=== PATIENT | female | born 1960 | race Hispanic/Latino ===

== ENCOUNTER 2016-07-02 09:10 | Observation (INO) | payer BC, OTHER ==
[2016-07-02 09:10] VITALS: BMI 23.9
[2016-07-02 09:18] VITALS: TEMP 98.5
[2016-07-02 09:21] VITALS: RESP 16
[2016-07-02] MEDS ORDERED: Sodium Chloride 0.9% 1,000 ML IV STA ×2 (09:36→10:29)
--- NOTE | 2016-07-02 09:39 | ED PDOC ---
Arrival/HPI - General Chief Complaint: Dizziness/Lightheaded Time Seen by Provider: 07/02/16 09:23 Historian: Patient - History of Present Illness Narrative History of Present Illness (Text): 07/02/16 09:33 55 year old female who denies significant past medical history presents to the emergency department with reports of "i feel like i have the flu. She reports generalized fatigue, decreased appetite, and body aches for the past five days. She also reports subjective fever. Patient reports she has not been eating due to loss of appetite and has only been drinking water and juice. Patient states she feels a tired when she walks. Denies chest pain, shortness of breath, throat pain, ear pain, cough, congestion, abdominal pain, vomiting, diarrhea, vaginal bleeding, or vaginal discharge. Time/Duration: < week Symptom Onset: Gradual Symptom Course: Unchanged Modifying Factors (Text): None Associated Symptoms (Text): None Past Medical History - Provider Review Nursing Documentation Reviewed: Yes - Infectious Disease Hx of Infectious Diseases: None - Reproductive Menopause: Yes - Psychiatric Hx Substance Use: No - Surgical History Other/Comment: breast implant - Anesthesia Hx Anesthesia: Yes Hx Anesthesia Reactions: No Hx Malignant Hyperthermia: No Family/Social History - Physician Review Nursing Documentation Reviewed: Yes Family/Social History: Unknown Family HX Smoking Status: Former Smoker Hx Alcohol Use: Yes Hx Substance Use: No Allergies/Home Meds Allergies/Adverse Reactions: Allergies No Known Allergies Allergy (Verified 07/02/16 09:19) Review of Systems - Review of Systems Constitutional: Fatigue, Fevers (subjective). absent: Weight Change, Night Sweats, Other Eyes: absent: Vision Changes, Photophobia, Eye Pain ENT: absent: Hearing Changes, Tinnitus, Sore Throat, Sinus Congestion Respiratory: absent: SOB, Cough, Sputum, Wheezing Cardiovascular: absent: Chest Pain, Palpitations, Edema, Calf Pain, KEATING, Orthopnea, Syncope Gastrointestinal: Appetite Changes (decreased). absent: Abdominal Pain, Constipation, Diarrhea, Nausea, Vomiting Genitourinary Female: absent: Dysuria, Frequency, Hematuria, Vaginal Bleeding, Vaginal Discharge Musculoskeletal: Arthralgias, Other (generalized body aches) Skin: absent: Rash Neurological: absent: Headache, Dizziness Endocrine: absent: Diaphoresis Hemo/Lymphatic: absent: Easy Bleeding Psychiatric: absent: Depression Physical Exam Vital Signs Temp Pulse Resp BP Pulse Ox 07/02/16 12:46 80 16 129/76 98 07/02/16 11:28 85 16 124/81 100 07/02/16 09:19 98.5 F 88 16 123/87 100 07/02/16 09:14 98.5 F Temperature: Afebrile Blood Pressure: Normal Pulse: Regular Respiratory Rate: Normal Appearance: Positive for: Well-Appearing, Non-Toxic, Comfortable Pain Distress: None Mental Status: Positive for: Alert and Oriented X 3 - Systems Exam Head: Present: Atraumatic, Normocephalic Pupils: Present: PERRL Extroacular Muscles: Present: EOMI Conjunctiva: Present: Normal Mouth: Present: Moist Mucous Membranes Neck: Present: Normal Range of Motion Respiratory/Chest: Present: Clear to Auscultation, Good Air Exchange. No: Respiratory Distress, Accessory Muscle Use Cardiovascular: Present: Regular Rate and Rhythm, Normal S1, S2. No: Murmurs Abdomen: Present: Normal Bowel Sounds. No: Tenderness, Distention, Peritoneal Signs, Rebound, Guarding Back: Present: Normal Inspection Upper Extremity: Present: Normal Inspection. No: Cyanosis, Edema Lower Extremity: Present: Normal Inspection. No: Edema Neurological: Present: GCS=15, CN II-XII Intact, Speech Normal, Gait Normal Skin: Present: Warm, Dry, Normal Color. No: Rashes Psychiatric: Present: Alert, Oriented x 3, Normal Insight, Normal Concentration Medical Decision Making ED Course and Treatment: Impression: 55 year old female who denies significant past medical history presents to the emergency department with generalized fatigue, decreased appetite, and body aches for the past five days. While initially stating she feels "dizzy" when walking, when explored further and clarified, she does not have sensation of room spinning, no feeling of near syncope, and simply just feels generalized fatigue. No chest pain. No SOB or dyspnea on exertion and normal vitals. Differential Diagnosis include but are not limited to: Viral illness vs uti vs pna vs electrolyte abnormality. Plan: -- EKG -- Chest x-ray -- Labs -- Reassess and disposition Prior Visits: Notes and results from previous visits were reviewed. Patient last seen in ED on 07/10/15 for chest wall pain and discharged home with Ibuprofen. Progress Notes: 07/02/16 10:34 EKG shows NSR at 89bpm with no ST elevation. Cxray negative. Patient's labs show normal WBC. CMP shows hyponatriemia and hypochloremia with elevated BUN consistent with dehydration. Patient admits to decresed po intake. Mild non- specific elevation in lfts with no abdominal pain. UA shows leukocytes and wbc consistent with uti. Will give 2L IVF and antibiotic and reeval 07/02/16 13:45 Patient feels better after eating and 2L IVF. She is aware that she needs repeat blood work by PMD Dr. Alvarez. She reports that she has not been following up with her PMD and reports that she understands that she needs to follow-up with him for further evaluation and further workup. She is neurologically intact and ambulating around the ED without issue. She is tolerating po and feels beter after eating. She was notified of her uti- although asymptomatic with no abdomianl pain, due to generalized fatigue and myalgias, will send culture and treat. Patient instructed to take full course of antibiotics and return with any worsening symptoms. - Lab Interpretations Lab Results: 07/02/16 09:57 07/02/16 09:57 Lab Results 07/02/16 09:57: WBC 8.0, RBC 4.39, Hgb 13.6, Hct 38.9, MCV 88.6, MCH 31.0, MCHC 35.0, RDW 11.9, Plt Count 174, MPV 10.2, Gran % 69.7 H, Lymph % (Auto) 17.4 L, [place] % (Auto) 12.8 H, Eos % (Auto) 0.0 L, Baso % (Auto) 0.1, Gran # 5.54, Lymph # 1.4, [place] # 1.0 H, Eos # 0.0, Baso # 0.01, Sodium 128 L, Potassium 3.9, Chloride 92 L, Carbon Dioxide 26, Anion Gap 14, BUN 28 H, Creatinine 1.0, Est GFR ( Amer) > 60, Est GFR (Non-Af Amer) 57, Random Glucose 116 H, Calcium 9.0, Phosphorus 3.7, Magnesium 2.8 H, Total Bilirubin 1.0, AST 156 H, ALT 88 H, Alkaline Phosphatase 127, Total Protein 8.1, Albumin 3.8, Globulin 4.3 , Albumin/Globulin Ratio 0.9 L, Influenza Typ A,B (EIA) Negative for flu a/b 07/02/16 09:45: Urine Color Dark yellow, Urine Appearance Sl cloudy, Urine pH 6.0, Ur Specific [place] 1.025, Urine Protein 100 H, Urine Glucose (UA) Negative , Urine Ketones Trace H, Urine Blood Moderate H, Urine Nitrate Negative, Urine Bilirubin Moderate H, Urine Urobilinogen 4.0 H, Ur Leukocyte Esterase Moderate H , Urine RBC 1 - 3, Urine WBC Tntc, Ur Epithelial Cells 6 - 8, Urine Bacteria Many, Coarse Granular Casts Trace H - RAD Interpretation Radiology Orders: 07/02/16 09:35 CHEST TWO VIEWS (PA/LAT) [RAD] Stat - EKG Interpretation Interpreted by ED Physician: Yes Type: 12 lead EKG - Medication Orders Current Medication Orders: Discontinued Medications Acetaminophen (Tylenol 325mg Tab) 650 mg PO STAT STA Stop: 07/02/16 12:13 Last Admin: 07/02/16 12:43 Dose: 650 MG MAR Pain/Vitals Document 07/02/16 12:43 [email or web address] (Rec: 07/02/16 12:45 [email or web address] [facility] [id number] [id number]) Pain Reassessment Is This A Pain ReAssessment? No Sleep Is patient sleeping during reassessment? No Presence of Pain Presence of Pain Yes Pain Scale Used Pain Scale Used Numeric Location Pain Location Body Site urethra Description Constant Pain Behavior Facial Grimacing Sodium Chloride (Sodium Chloride 0.9%) 1,000 mls @ 999 mls/hr IV .Q1H1M STA Stop: 07/02/16 10:36 Last Admin: 07/02/16 10:03 Dose: 999 MLS/HR eMAR Start Stop Document 07/02/16 10:03 [email or web address] (Rec: 07/02/16 10:03 [email or web address] [id number]) Intravenous Solution Start Date 07/02/16 Start Time 10:03 End Date 07/02/16 Sodium Chloride (Sodium Chloride 0.9%) 1,000 mls @ 999 mls/hr IV .Q1H1M STA Stop: 07/02/16 11:29 Last Admin: 07/02/16 10:43 Dose: 999 MLS/HR eMAR Start Stop Document 07/02/16 10:43 [email or web address] (Rec: 07/02/16 10:43 [email or web address] [facility] [id number] [id number]) Intravenous Solution Start Date 07/02/16 Start Time 10:43 End Date 07/02/16 Nitrofurantoin Macrocrystals (Macrobid) 100 mg PO STAT STA Stop: 07/02/16 10:34 Last Admin: 07/02/16 10:42 Dose: 100 MG ED OBSERVATION Discharge: Yes Date of observation admission: 07/02/16 Time of observation admission: 10:36 - Observation admission statement Patient is being placed in observation because:: dehydration - Goals of Observation Goals of observation are:: hydrate patient with IV fluids, reassess - Progress Note Progress Note: 07/02/16 10:36 On initial exam, patient appears in no distress, resting comfortably. 07/02/16 12:36 On reevaluation, patient in no acute distress. - Scribe Statement The provider has reviewed the documentation as recorded by the [place] Provider Scribe Attestation: All medical record entries made by the [place] were at my direction and personally dictated by me. I have reviewed the chart and agree that the record accurately reflects my personal performance of the history, physical exam, medical decision making, and the department course for this patient. I have also personally directed, reviewed, and agree with the discharge instructions and disposition. Disposition/Present on Arrival - Present on Arrival Any Indicators Present on Arrival: No History of DVT/PE: No History of Uncontrolled Diabetes: No Urinary Catheter: No History of Decub. Ulcer: No History Surgical Site Infection Following: None - Disposition Have Diagnosis and Disposition been Completed?: Yes Diagnosis: UTI (urinary tract infection) Disposition: HOME/ ROUTINE Disposition Time: 10:36 Patient Plan: Discharge Condition: GOOD
[2016-07-02 09:59] LABS: URINE BILIRUBIN MODERATE (NEGATIVE); URINE BLOOD MODERATE (NEGATIVE); URINE GLUCOSE (UA) NEGATIVE (NEGATIVE); URINE KETONE TRACE mg/dL (NEGATIVE); URINE LEUKOCYTE ESTERASE MODERATE Leu/uL (NEGATIVE); URINE PROTEIN 100 mg/dL (<30 mg/dL)
[2016-07-02 10:01] LABS: URINE APPEARANCE SL CLOUDY (CLEAR); URINE COLOR DARK YELLOW (YELLOW)
[2016-07-02 10:05] LABS: ADD MANUAL DIFF? NO
[2016-07-02 10:06] LABS: URINE WBC TNTC /hpf (0-6)
[2016-07-02 10:07] LABS: URINE BACTERIA MANY (NEG)
[2016-07-02 10:11] LABS: BASO # 0.01 K/mm3 (0.0-2.0); BASO % 0.1 % (0.0-3.0); GRAN # 5.54 (1.4-6.5); GRAN % 69.7 % (50.0-68.0); HEMATOCRIT 38.9 % (36.0-48.0); LYMPH # 1.4 (1.2-3.4); LYMPH % 17.4 % (22.0-35.0); MEAN CELL VOLUME 88.6 fL (80.0-105.0); MEAN PLATELET VOLUME 10.2 fl (7.0-11.0); MONO % 12.8 % (1.0-6.0); PLATELET COUNT 174 10^3/uL (120.0-450.0); RED CELL DISTRIBUTION WIDTH 11.9 % (11.5-14.5)
[2016-07-02 10:26] LABS: ALB/GLOB RATIO 0.9 (1.1-1.8); ALKALINE PHOSPHATASE 127 U/L (38-133); ALT/SGPT 88 U/L (7-56); AST/SGOT 156 U/L (15-39); BLOOD UREA NITROGEN 28 mg/dL (7-21); CARBON DIOXIDE 26 mmol/L (21-33); CHLORIDE 92 mmol/L (98-107); GFR AFRICAN-AMERICAN > 60; GLUCOSE,RANDOM 116 mg/dL (70-110); MAGNESIUM 2.8 mg/dL (1.7-2.2); PHOSPHOROUS 3.7 mg/dL (2.5-4.5); POTASSIUM 3.9 mmol/L (3.6-5.0); SODIUM 128 mmol/L (132-148); TOTAL PROTEIN 8.1 g/dL (5.8-8.3)
--- NOTE | 2016-07-02 10:49 | RAD ---
HISTORY: fatigue COMPARISON: No prior. TECHNIQUE: Chest PA and lateral FINDINGS: LUNGS: No active pulmonary disease. PLEURA: No significant pleural effusion identified. No pneumothorax apparent. CARDIOVASCULAR: Normal. OSSEOUS STRUCTURES: No significant abnormalities. VISUALIZED UPPER ABDOMEN: Normal. OTHER FINDINGS: None. IMPRESSION: No active disease.
[2016-07-02 12:46] VITALS: BP 129/76; PULSE 80; O2SAT 98
--- NOTE | 2016-07-03 09:54 | CARD ---
APPROVED REPORT EKG Measurement Heart [id number] IN 130P58 [id number] <Conclusion> Normal sinus rhythm Normal ECG
== END 2016-07-02 12:52 | disposition home or self-care (01) ==
LOC: ED 09:10 → EROBSV 10:36
PROVIDERS: ADMIT Emergency Medicine; ATTEND Emergency Medicine
DX: N39.0 Urinary tract infection, site not specified (principal); Z87.891 Personal history of nicotine dependence
CPT/HCPCS: 71020; 80053; 81001; 83735; 84100; 85025; 87086; 87181; 87804; 93005; 99285; G0378; J7040

== ENCOUNTER 2017-01-31 08:12 | Emergency (ER) | payer BC, OTHER ==
[2017-01-31 08:26] VITALS: TEMP 98.5
[2017-01-31 08:27] VITALS: BMI 26.7
--- NOTE | 2017-01-31 08:40 | ED PDOC ---
Arrival/HPI - General Chief Complaint: Trauma Time Seen by Provider: 01/31/17 08:17 - History of Present Illness Narrative History of Present Illness (Text): 56 year old female with a history of bilateral breast implants with no reported medical history who presents with left chest wall pain after falling over her Dog this . She felt on her right arm and right chest. The pain has gradually worsened in severity and she now has pain when she takes a deep breath. The pain is localized to the left sternocostal area and inframammary region. She denies any dyspnea, cough, hemoptysis, or radiation of the pain. 01/31/17 08:45 (Alan Hernández) Past Medical History - Provider Review Nursing Documentation Reviewed: Yes - Infectious Disease Hx of Infectious Diseases: None - Cardiac Hx Cardiac Disorders: (denies) - Pulmonary Hx Respiratory Disorders: (denies) - Neurological Hx Neurological Disorder: (denies) - HEENT Hx HEENT Disorder: (denies) - Renal Hx Renal Disorder: (denies) - Endocrine/Metabolic Hx Endocrine Disorders: (denies) - Hematological/Oncological Hx Blood Disorders: (denies) - Integumentary Hx Dermatological Disorder: (denies) - Musculoskeletal/Rheumatological Hx Musculoskeletal Disorders: (denies) - Gastrointestinal Hx Gastrointestinal Disorders: (denies) - Genitourinary/Gynecological Hx Genitourinary Disorders: (denies) - Psychiatric Hx Psychophysiologic Disorder: (denies) Hx Substance Use: No - Surgical History Other/Comment: breast implant - Anesthesia Hx Anesthesia: Yes Hx Anesthesia Reactions: No Hx Malignant Hyperthermia: No Family/Social History - Physician Review Nursing Documentation Reviewed: Yes Family/Social History: Unknown Family HX Smoking Status: Former Smoker Hx Alcohol Use: Yes Hx Substance Use: No Allergies/Home Meds Allergies/Adverse Reactions: Allergies No Known Allergies Allergy (Verified 01/31/17 08:27) Review of Systems - Review of Systems Constitutional: Normal. absent: Fatigue, Fevers, Night Sweats Eyes: absent: Vision Changes Respiratory: absent: SOB, Cough, Wheezing Cardiovascular: Chest Pain (chest wall pain). absent: Palpitations, Edema, Orthopnea, Syncope Gastrointestinal: Normal. absent: Abdominal Pain, Nausea, Vomiting Genitourinary Female: Normal. absent: Dysuria, Hematuria Musculoskeletal: Other (left anterior rib tenderness) Skin: Laceration (superficial laceration of the left index finger) Neurological: Normal. absent: Headache, Dizziness, Focal Weakness, Speech Changes Endocrine: absent: Diaphoresis, Polyuria, Polydipsia Hemo/Lymphatic: absent: Easy Bleeding, Easy Bruising Psychiatric: absent: Anxiety, Depression Physical Exam Vital Signs Reviewed: Yes Temperature: Afebrile Blood Pressure: Hypertensive Pulse: Regular Respiratory Rate: Normal Appearance: Positive for: Well-Appearing Pain Distress: Mild Mental Status: Positive for: Alert and Oriented X 3 - Systems Exam Head: Present: Atraumatic, Normocephalic Pupils: Present: PERRL Extroacular Muscles: Present: EOMI Conjunctiva: Present: Normal Ears: Present: NORMAL TM, Erythema Mouth: Present: Moist Mucous Membranes Pharnyx: Present: Normal Neck: Present: Normal Range of Motion. No: Meningeal Signs, MIDLINE TENDERNESS , Lymphadenopathy Respiratory/Chest: Present: Clear to Auscultation, Good Air Exchange, Other ( tenderness to palpation on sternum and left sternocostal angles) Cardiovascular: Present: Regular Rate and Rhythm, Normal S1, S2. No: Murmurs Abdomen: Present: Normal Bowel Sounds. No: Tenderness, Distention Back: Present: Normal Inspection. No: CVA Tenderness Upper Extremity: Present: Normal Inspection, Normal ROM, NORMAL PULSES. No: Cyanosis, Edema Lower Extremity: Present: Normal Inspection. No: Edema Neurological: Present: CN II-XII Intact, Speech Normal Skin: Present: Warm, Dry, Normal Color Vital Signs Temp Pulse Resp BP Pulse Ox 01/31/17 10:41 72 17 109/70 100 01/31/17 09:22 66 16 143/88 99 01/31/17 08:25 98.5 F 74 18 155/87 H 100 Medical Decision Making ED Course and Treatment: 01/31/17 10:07 Patient Seen With Resident: In agreement with resident note which contains more details about the patient. Patient was seen and evaluated with resident. Came up with plan and treatment together. Patient states she tripped and fell 4 days ago. Patient denies any history of dizziness, loss of appetite recently. After reviewing patient's prior ED visit, will need to follow-up with patient's PMD Dr. Alvarez. Patient has palpable left-sided chest pain with no edema or crepitus. Lungs are clear and is in no respiratory distress. Breast exam was performed with female pole lift operator, and exam reveals no breast tenderness, edema, or erythema. Chest X-Ray reveals no pneumothorax and no displaced rib fracture. No abdominal pain on examination, and no other acute pain at this time. Patient will be discharged with instructions to use incentives and take anti-inflammatory medications. (Yarelis Ventura) - RAD Interpretation Radiology Orders: 01/31/17 08:45 RIBS LEFT & PA CHEST [RAD] Stat Disposition/Present on Arrival - Present on Arrival Any Indicators Present on Arrival: No History of DVT/PE: No History of Uncontrolled Diabetes: No Urinary Catheter: No History of Decub. Ulcer: No History Surgical Site Infection Following: None - Disposition Have Diagnosis and Disposition been Completed?: Yes Disposition Time: 11:00 Patient Plan: Discharge - Disposition Diagnosis: Rib contusion Disposition: HOME/ ROUTINE Condition: GOOD Discharge Instructions (ExitCare): Rib Fracture (ED) Additional Instructions: For any shortness of breath, any change in character or location of pain, any swelling or rash, any coughing/spitting blood, any abdominal pain, any nausea or vomiting, any numbness or weakness, any dizziness or unsteadiness, get rechecked. Please follow-up with Dr. Alvarez to have your blood work rechecked periodically. Take pain mediation as directed. Please contact your doctor or call one of the physicians/clinics you have been referred to that are listed on the Patient Visit Information form that is included in your discharge packet. Bring any paperwork you were given at discharge with you along with any medications you are taking to your follow up visit. Our treatment cannot replace ongoing medical care by a primary care provider (PCP) outside of the emergency department. Thank you for allowing the [facility] team to be part of your care today. If you had an X-Ray or CT scan: A Radiologist will review the ED reading if any change in treatment is needed we will contact you. Prescriptions: Naproxen 250 mg PO BID PRN #12 tablet PRN Reason: Pain, Moderate (4-7) Referrals: Nicholas Alvarez MD [Family Provider] - Follow up with primary Forms: [employer] ([place]), WORK NOTE
[2017-01-31 10:44] VITALS: BP 109/70; PULSE 72; RESP 17; O2SAT 100
--- NOTE | 2017-01-31 18:10 | RAD ---
PROCEDURE: Radiographs of the Chest and Left Ribs. HISTORY: fall COMPARISON: None available. TECHNIQUE: Frontal radiograph of the chest and multiple oblique radiographs of the left ribs were obtained. FINDINGS: LEFT RIBS: No evidence of acute displaced fracture nor dislocation so far as can be seen. Note that the lower ribs are partially obscured by bowel related artifact and underpenetration. . There are in situ breast implants. . Clinical correlation with history recommended. LUNGS: Lung montano clear without infiltrate effusion or pneumothorax PLEURA: As above CARDIOVASCULAR: Heart size within range of normal. No significant vascular congestion. OTHER FINDINGS: None. IMPRESSION: Limited study in part due to overlying breast implant, underpenetration end bowel related artifact which partially obscures the upper and lower ribs. Study demonstrates no acute cardiopulmonary disease. No evidence of pneumothorax No definitive evidence of acute displaced left-sided rib fracture however if symptoms persist recommend followup CT scan of the chest. The
== END 2017-01-31 10:41 | disposition home or self-care (01) ==
LOC: ED 08:12
DX: S20.212A Contusion of left front wall of thorax, initial encounter (principal); W19.XXXA Unspecified fall, initial encounter